=== PATIENT | female | born 2000 | race Caucasian/White ===

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

== ENCOUNTER 2019-01-24 08:36 | Emergency (ER) | payer MEDICAID ==
[2019-01-24 08:46] VITALS: BP 136/65
--- NOTE | 2019-01-24 09:30 | ER Document Report ---
HPI - HPI Time Seen by Provider: 01/24/19 09:13 Pain Level: 1 Context: Patient is a 18-year-old female who presents to the emergency department with a chief complaint of a rash. She noticed the rash yesterday morning. She denies any pruritus. Patient has a history of Lyme disease. The rash is mainly on her abdomen. It is a circular pattern, but no bull's-eye noted. Denies any past medical history. Patient does not take any medications. - CONSTITUTIONAL Constitutional: DENIES: Fever, Chills - EENT EENT: DENIES: Sore Throat, Ear Pain, Eye problems - NEURO Neurology: DENIES: Headache, Weakness, Vision blurred, Dizzinesss / Vertigo - CARDIOVASCULAR Cardiovascular: DENIES: Chest pain - RESPIRATORY Respiratory: DENIES: Trouble Breathing, Coughing - GASTROINTESTINAL Gastrointestinal: DENIES: Abdominal Pain, Black / Bloody Stools - URINARY Urinary: DENIES: Dysuria, Urgency, Frequency - REPRODUCTIVE Reproductive: DENIES: :, Postmenopausal, Abnormal bleeding / discharge - MUSCULOSKELETAL Musculoskeletal: DENIES: Extremity pain - DERM Skin Problems: Rash - Abdomen, multiple and circular Past Medical History - Social History Smoking Status: Never Smoker Chew tobacco use (# tins/day): No Drug Abuse: None Family History: Reviewed & Not Pertinent Patient has suicidal ideation: No Patient has homicidal ideation: No Renal/ Medical History: Denies: Hx Peritoneal Dialysis Skin Medical History: Reports Hx Cellulitis Psychiatric Medical History: Reports: Hx Depression - Immunizations Immunizations up to date: Yes Hx Diphtheria, Pertussis, Tetanus Vaccination: Yes Vertical Provider Document - CONSTITUTIONAL Notes: PHYSICAL EXAMINATION: GENERAL: Appears well, healthy, well-nourished, no acute distress. HEAD: Normocephalic, atraumatic. EYES: PERRL, conjunctiva normal, all extraocular movements intact, sclera nonicteric ENT: Moist mucous membranes. NECK: Supple, no noticeable swelling, redness, rash. Normal range of motion. LUNGS: Equal breath sounds bilaterally and clear to auscultation. No wheezes rales or rhonchi. CARDIOVASCULAR: S1-S2, regular rate, regular rhythm. Radial pulses 2+, normal. ABDOMEN: Normoactive bowel sounds. Soft, nontender, no guarding, no rebound tenderness, and no masses palpated. EXTREMITIES: Normal strength and range of motion, no pitting or edema. No cyanosis. NEUROLOGICAL: Moves all extremities upon command. Strength 5/5 in all extremities. PSYCH: Normal mood, normal affect. SKIN: Warm, dry. Normal skin turgor. Blanchable erythematous circular richardson on abdomen. - INFECTION CONTROL TRAVEL OUTSIDE OF THE [place] IN LAST 30 DAYS: No Course - Re-evaluation Re-evalutation: 01/24/19 09:57 Dr. Paula had evaluated the patient and at this time the patient does not have any life-threatening rash. Dr. Puala is recommending an antifungal cream to help with the rash she has on her abdomen. I have a very low suspicion for Lyme's disease, as there is no bullseye noted on her rash. Follow-up precautions were given. Verbal discharge instructions were given to the patient. They verbalized understanding. They are stable for discharge. - Vital Signs Vital signs: Temp Pulse Resp BP Pulse Ox 98.0 F 78 16 136/65 H 100 01/24/19 08:44 01/24/19 08:44 01/24/19 08:44 01/24/19 08:44 01/24/19 08:44 Discharge - Discharge Clinical Impression: Rash Condition: Stable Disposition: HOME, SELF-CARE Additional Instructions: You are seen today in the emergency department for a rash on your abdomen. At this time, your rash does not appear life-threatening. You are being prescribed antifungal cream. If the rash does not seem to go away, you can use the cream. Please follow-up with a primary care provider in regards to this visit. Prescriptions: Clotrimazole 1% Topical [Lotrimin 1% Topical Soln 10 ml] 1 applic TP BIDP PRN #10 ml PRN Reason:
--- NOTE | 2019-01-24 09:51 | ER Document Report ---
Doctor's Note Notes: 01/24/19 09:48 Patient seen in conjunction with nurse practitioner, please see her note correlate with mine. In short this is a 18-year-old female presents to the emergency department for evaluation of a rash. She noticed it yesterday on her abdomen and back. She states it started as circles. She states some of the cir cles are changing in shape. She has no itching, no burning, no pain. No fevers. No vomiting. She does have a history of Lyme disease. On exam, patient nontoxic in appearance. She has very faint, mildly erythematous ring- shaped lesions with central clearing. The lesions themselves are very thin. Not raised. Findings are very nonspecific. Will offer treatment for tinea, close follow up.
== END 2019-01-24 10:01 | disposition home or self-care (01) ==
LOC: ER 08:36
DX: R21 Rash and other nonspecific skin eruption (principal)
CPT/HCPCS: 99282

== ENCOUNTER 2019-02-03 19:01 | Emergency (ER) | payer MEDICAID ==
[2019-02-03 19:08] VITALS: BP 133/76
--- NOTE | 2019-02-03 19:23 | ER Document Report ---
HPI - HPI Pain Level: 2 Notes: Patient is a 18-year-old female no significant past medical history who presents complaining of continued rash that she was seen for a couple weeks ago. Patient states that she has not had any significant changes overall and the antifungal cream does not seem to be doing anything for her. She does not have any associated pain. Patient states that on occasion she will feel little pruritic. No recent illness. She is able to eat and drink without difficulty. She is urinating normally and having normal bowel movements. No new exposure to chemicals, detergents, soaps, foods. No known insect or tick bite. Denies any headache, fever, URI, sore throat, chest pain, palpitations, syncope, cough, shortness of breath, wheeze, dyspnea, abdominal pain, nausea/vomiting/diarrhea, urinary retention, dysuria, hematuria, numbness/tingling, muscle paralysis/weak ness. - ROS Systems Reviewed and Negative: Yes All other systems reviewed and negative - REPRODUCTIVE Reproductive: DENIES: : Past Medical History - Social History Smoking Status: Unknown if Ever Smoked Family History: Reviewed & Not Pertinent Renal/ Medical History: Denies: Hx Peritoneal Dialysis Skin Medical History: Reports Hx Cellulitis Psychiatric Medical History: Reports: Hx Depression - Immunizations Immunizations up to date: Yes Hx Diphtheria, Pertussis, Tetanus Vaccination: Yes Vertical Provider Document - CONSTITUTIONAL Agree With Documented VS: Yes Notes: PHYSICAL EXAMINATION: GENERAL: Well-appearing, well-nourished and in no acute distress. HEAD: Atraumatic, normocephalic. EYES: Pupils equal round and reactive to light, extraocular movements intact, sclera anicteric, conjunctiva are normal. ENT: Nares patent and without discharge. oropharynx clear without exudates. No tonsilar hypertrophy or erythema. Moist mucous membranes. NECK: Normal range of motion, supple without lymphadenopathy LUNGS: Breath sounds clear to auscultation bilaterally and equal. No wheezes rales or rhonchi. HEART: Regular rate and rhythm without murmurs, rubs, gallops. ABDOMEN: Soft, nontender, nondistended abdomen. No guarding, no rebound. No masses appreciated. Normal bowel sounds present. No CVA tenderness bilaterally. Musculoskeletal: FROM to passive/active. Strength 5+/5. Extremities: No cyanosis, clubbing, or edema b/l. Peripheral pulses 2+. Capillary refill less than 3 seconds. NEUROLOGICAL: Cranial nerves grossly intact. Normal speech, normal gait. Normal sensory, motor exams PSYCH: Normal mood, normal affect. SKIN: there is a very faint thin erythemic ring with central clearing. No erythema migrans. No deep areas of erythema, tenderness, fluctuance, induration, purulence. There are multiple lesions of varying sizes generalized. The rash is not noticeable unless you are up close to the skin itself. - INFECTION CONTROL TRAVEL OUTSIDE OF THE [place] IN LAST 30 DAYS: No Course - Re-evaluation Re-evalutation: 02/03/19 19:26 Patient is an afebrile, well-hydrated, 18-year-old female who presents with nonspecific skin rash. Vitals are acceptable without significant tachycardia, tachypnea, or hypoxia. PE is otherwise unremarkable. Patient is nontoxic- appearing and is tolerating p.o. without difficulty. Low suspicion for any necrotizing fasciitis, SJS, SSS, drug reaction, sepsis, meningitis, syphilis, Lyme disease, [place] spotted fever, or other systemic emergent condition at this time. Patient aware that condition can change from initial presentation and she needs to monitor symptoms closely and seek medical attention with any acute changes. Recheck with your PCM in 3-5 days. Schedule consult with dermatology. Return to the ED with any other worsening/concerning symptoms as reviewed. Patient is in agreement. - Vital Signs Vital signs: Temp Pulse Resp BP Pulse Ox 97.6 F 83 20 133/76 H 96 02/03/19 19:07 02/03/19 19:07 02/03/19 19:07 02/03/19 19:07 02/03/19 19:07 Discharge - Discharge Clinical Impression: Rash and nonspecific skin eruption Condition: Stable Disposition: HOME, SELF-CARE Additional Instructions: Keep the skin clean Wash with soap and water Tylenol/ibuprofen if needed Take medication as directed Monitor for any worsening symptoms Recheck with your PCM in 3-5 days Schedule appointment dermatology for further evaluation and management Return to the ED with any worsening symptoms and/or development of fever, headache, chest pain, palpitations, syncope, shortness of breath, trouble breathing, abdominal pain, n/v/d, abscess, purulent discharge, red streaks, worsening swelling, or other worsening symptoms that are concerning to you. Forms: Elevated Blood Pressure Referrals: DANIELA MATHUR MD [NO LOCAL MD] - Follow up in 3-5 days
== END 2019-02-03 19:43 | disposition home or self-care (01) ==
LOC: ER 19:01
DX: R21 Rash and other nonspecific skin eruption (principal)

== ENCOUNTER 2019-03-31 18:50 | Emergency (ER) | payer MEDICAID ==
[2019-03-31] MEDS ORDERED: ONDANSETRON 4 MG TAB.RAPDIS PO ONE (19:34)
--- NOTE | 2019-03-31 19:36 | ER Document Report ---
ED Medical Screen (RME) - General Chief Complaint: Abdominal Pain Stated Complaint: FEVER Time Seen by Provider: 03/31/19 19:31 Mode of Arrival: Ambulatory Information source: Patient Notes: 18-year-old female presented to ED for complaint of abdominal pain periumbilical since last night. She is also had nausea and vomiting with vomiting x2. Her last menstrual period was 828 and she did take Plan B on March 01 and had a few days of light bleeding there was not a normal cycle. She states she does not smoke drink or do any drugs. She does have a history of anxiety depression and lives disease. TRAVEL OUTSIDE OF THE [place] IN LAST 30 DAYS: No - Related Data Allergies/Adverse Reactions: fluoxetine [From Prozac] Allergy (Verified 01/24/19 08:37) shellfish derived Allergy (Verified 01/24/19 08:37) Past Medical History Renal/ Medical History: Denies: Hx Peritoneal Dialysis Skin Medical History: Reports Hx Cellulitis Psychiatric Medical History: Reports: Hx Depression Past Surgical History: Reports: Hx Orthopedic Surgery - R leg - Immunizations Immunizations up to date: Yes Hx Diphtheria, Pertussis, Tetanus Vaccination: Yes Physical Exam - Vital signs Vitals: Temp Pulse Resp BP Pulse Ox 98.1 F 100 H 16 118/95 H 98 03/31/19 18:56 03/31/19 18:56 03/31/19 18:56 03/31/19 18:56 03/31/19 18:56 Course - Vital Signs Vital signs: Temp Pulse Resp BP Pulse Ox 98.1 F 100 H 16 118/95 H 98 03/31/19 18:56 03/31/19 18:56 03/31/19 18:56 03/31/19 18:56 03/31/19 18:56
[2019-03-31 20:49] LABS: ABSOLUTE LYMPHOCYTES (AUTO) 1.4 10^3/uL (0.5-4.7); ABSOLUTE MONOCYTES (AUTO) 0.4 10^3/uL (0.1-1.4); ABSOLUTE NEUT (AUTO) 8.7 10^3/uL (1.7-8.2); BASOPHILS % (AUTO) 0.3 % (0-2); EOSINOPHILS % (AUTO) 0.2 % (0-6); HEMATOCRIT 39.2 % (36.0-47.0); HEMOGLOBIN 13.2 g/dL (12.0-15.5); LYMPHOCYTES % (AUTO) 13.7 % (13-45); MEAN CORPUSCULAR HEMOGLOBIN 30.8 pg (27.0-33.4); MEAN CORPUSCULAR HGB CONC 33.6 g/dL (32.0-36.0); MEAN CORPUSCULAR VOLUME 92 fl (80-97); PLATELET COUNT 167 10^3/uL (150-450); RED BLOOD COUNT 4.28 10^6/uL (3.72-5.28); RED CELL DISTRIBUTION WIDTH 12.6 % (11.5-14.0); SEGMENTED NEUTROPHILS % (AUTO) 81.8 % (42-78); TOTAL CELLS COUNTED % (AUTO) 100 %; WHITE BLOOD COUNT 10.6 10^3/uL (4.0-10.5)
[2019-03-31 21:00] LABS: APPEARANCE,URINE SLIGHTLY-CLOUDY; BILIRUBIN,URINE NEGATIVE (NEGATIVE); CALCIUM OXALATE CRYSTALS,URINE FEW /HPF; COLOR,URINE YELLOW; GLUCOSE, URINE NEGATIVE (NEGATIVE); KETONES,URINE NEGATIVE (NEGATIVE); LEUKOCYTE ESTERASE,URINE TRACE (NEGATIVE); NITRITE,URINE NEGATIVE (NEGATIVE); PROTEIN,URINE NEGATIVE (NEGATIVE); URINE SPECIFIC GRAVITY 1.025; UROBILINOGEN,URINE NEGATIVE mg/dL (<2.0)
[2019-03-31 21:07] LABS: ALBUMIN 4.8 g/dL (3.7-5.6); ALKALINE PHOSPHATASE 98 U/L (50-135); ANION GAP 13 (5-19); ASPARTATE AMINO TRANSFERASE 23 U/L (5-30); BILIRUBIN,DIRECT 0.1 mg/dL (0.0-0.4); BILIRUBIN,TOTAL 0.3 mg/dL (0.2-1.3); BLOOD UREA NITROGEN 15 mg/dL (7-20); CALCIUM 10.1 mg/dL (8.4-10.2); CARBON DIOXIDE 25 mmol/L (22-30); CHLORIDE 102 mmol/L (98-107); GLUCOSE 94 mg/dL (75-110); POTASSIUM 4.2 mmol/L (3.6-5.0); TOTAL PROTEIN 7.8 g/dL (6.3-8.2)
--- NOTE | 2019-03-31 22:52 | ER Document Report ---
ED GI/ - General Chief Complaint: Abdominal Pain Stated Complaint: FEVER Time Seen by Provider: 03/31/19 22:52 Primary Care Provider: BOYD MONTEZ MD [ACTIVE STAFF] - Follow up as needed Mode of Arrival: Ambulatory Information source: Patient Notes: HISTORY OF PRESENT ILLNESS: Patient is a 18-year-old female with no significant past medical history who presents with abdominal pain and nausea after eating a chicken sandwich. Patient states that after eating the sandwich, approximately 30 minutes later she began having slight abdominal pain, soon after this she began having nausea and had multiple episodes of nonbloody and nonbilious emesis. She denies known sick contacts. Location: Abdomen Onset: Prior to arrival Alleviation: None Provocation: Possibly eating bad food Quality: Nausea, aching Radiation: None Severity: Mild to moderate Timing: Constant History of abdominal surgery: None Associated symptoms: Denies fevers or chills, no constipation or diarrhea, no vaginal bleeding or discharge Last bowel movement: Today and normal Last menstrual period: Last month REVIEW OF SYSTEMS: CONSTITUTIONAL : Denies fever or chills, no sweats. Denies recent illness. EENT: Denies eye, ear, throat, or mouth pain or symptoms. Denies nasal or sinus congestion. CARDIOVASCULAR: Denies chest pain. Denies swelling of the legs. RESPIRATORY: Denies cough, cold, or chest congestion. Denies shortness of breath or difficulty breathing. Denies wheezing. GASTROINTESTINAL: Positive for abdominal pain. Positive for nausea and vomiting. Denies constipation. GENITOURINARY: Denies difficulty urinating, painful urination, burning, frequency, or blood in urine. FEMALE GENITOURINARY: Denies vaginal bleeding, abnormal or irregular periods. MUSCULOSKELETAL: Denies neck or back pain or joint pain or swelling. SKIN: Denies rash or skin lesions. HEMATOLOGIC : Denies easy bruising or bleeding. LYMPHATIC: Denies swollen, enlarged glands. NEUROLOGICAL: Denies altered mental status or loss of consciousness. Denies headache. Denies weakness or paralysis or loss of use of either side. Denies problems with gait or speech. Denies sensory or motor loss. PSYCHIATRIC: Denies anxiety or stress or depression. All other systems reviewed and negative. PHYSICAL EXAMINATION: GENERAL: Well-appearing, well-nourished and in no acute distress. HEAD: Atraumatic, normocephalic. No scalp deformity, depression, or crepitance. EYES: Pupils are 3 mm and equal/round/reactive to light, extraocular movements intact, sclera anicteric, conjunctiva are normal. ENT: Nares patent bilaterally, oropharynx. Moist mucous membranes. No tonsil hypertrophy. NECK: Normal range of motion, supple without lymphadenopathy. LUNGS: Breath sounds present, equal, and clear to auscultation bilaterally. No wheezes, rales, or rhonchi. HEART: Regular rate and rhythm without murmurs, rubs, or gallops. 2+ peripheral pulses. Normal capillary refill. ABDOMEN: Soft, nontender, nondistended. Normoactive bowel sounds. No guarding, no rebound. No masses appreciated. BACK: Normal contour, no midline tenderness. Rectal exam deferred. GENITAL/PELVIC: Deferred. EXTREMITIES: Normal range of motion, no pitting or edema. No cyanosis. NEUROLOGICAL: No focal neurological deficits. Moves all extremities spontaneously and on command. PSYCH: Normal mood, normal affect. No suicidal thoughts/ideations. No homicidal thoughts/ideations. No hallucinations. SKIN: Warm, dry, normal turgor, no rashes or lesions noted. ASSESSMENT AND PLAN: This patient is a 18-year-old female who presents with nausea and vomiting likely secondary to gastroenteritis versus foodborne illness versus gastritis. 1. Will obtain labs, give IV fluids, and reassess. 2. Will perform oral challenge after work-up is complete and patient has improved. TRAVEL OUTSIDE OF THE [place] IN LAST 30 DAYS: No - HPI Patient complains to provider of: Abdominal pain, Vomiting Onset: This evening Timing/Duration: Sudden Quality of pain: Achy, Cramping Severity at maximum: Moderate Severity in ED: Mild Pain Level: 1 Context: Bad food Location: Suprapubic, Other - Lower abdomen Vaginal bleeding (Compared to normal period): None Menstrual period history: Abnormal, Missed Sexual history: Active Associated symptoms: Nausea, Vomiting Exacerbated by: Denies Relieved by: Denies Similar symptoms previously: No Recently seen / treated by doctor: No - Related Data Allergies/Adverse Reactions: fluoxetine [From Prozac] Allergy (Verified 01/24/19 08:37) shellfish derived Allergy (Verified 01/24/19 08:37) Past Medical History - General Information source: Patient - Social History Smoking Status: Never Smoker Chew tobacco use (# tins/day): No Frequency of alcohol use: None Drug Abuse: None Lives with: Friend Family History: Reviewed & Not Pertinent Patient has suicidal ideation: No Patient has homicidal ideation: No - Past Medical History Cardiac Medical History: Reports: None Pulmonary Medical History: Reports: None EENT Medical History: Reports: None Neurological Medical History: Reports: None Endocrine Medical History: Reports: None Renal/ Medical History: Reports: None. Denies: Hx Peritoneal Dialysis Malignancy Medical History: Reports: None GI Medical History: Reports: None Musculoskeletal Medical History: Reports None Skin Medical History: Reports Hx Cellulitis Psychiatric Medical History: Reports: Hx Depression Traumatic Medical History: Reports: None Infectious Medical History: Reports: None Past Surgical History: Reports: Hx Orthopedic Surgery - R leg - Immunizations Immunizations up to date: Yes Hx Diphtheria, Pertussis, Tetanus Vaccination: Yes Review of Systems - Review of Systems Constitutional: No symptoms reported EENT: No symptoms reported Cardiovascular: No symptoms reported Respiratory: No symptoms reported Gastrointestinal: See HPI, Abdominal pain, Nausea, Vomiting Genitourinary: No symptoms reported Female Genitourinary: No symptoms reported Musculoskeletal: No symptoms reported Skin: No symptoms reported Hematologic/Lymphatic: No symptoms reported Neurological/Psychological: No symptoms reported -: Yes All other systems reviewed and negative Physical Exam - Vital signs Vitals: Temp Pulse Resp BP Pulse Ox 98.1 F 100 H 16 118/95 H 98 03/31/19 18:56 03/31/19 18:56 03/31/19 18:56 03/31/19 18:56 03/31/19 18:56 Interpretation: Normal Course - Re-evaluation Re-evalutation: 04/01/19 00:36 Will discharge the patient home with strict return precautions and follow-up with [employer]. All results were explained to and discussed with the patient, and all questions addressed and answered. The patient voices both understanding and agreeing with the plan. - Vital Signs Vital signs: Temp Pulse Resp BP Pulse Ox 98.4 F 83 13 106/55 L 98 04/01/19 00:55 04/01/19 00:55 04/01/19 00:55 04/01/19 00:55 04/01/19 00:55 - Laboratory Result Diagrams: 03/31/19 20:16 03/31/19 20:16 Laboratory results interpreted by me: 03/31/19 03/31/19 20:16 20:16 WBC 10.6 H Absolute Neuts (auto) 8.7 H Seg Neutrophils % 81.8 H Ur Leukocyte Esterase TRACE H Discharge - Discharge Clinical Impression: Enteritis Condition: Good Disposition: HOME, SELF-CARE Instructions: Abdominal Pain ([facility]) Additional Instructions: You have been evaluated in the Emergency Department for abdominal pain and vomiting. While here, you had blood work that was normal and it is now safe to be discharged home. Please follow-up with your/[employer] WORKER as instructed in one week to be rechecked. Return to the Emergency Department if you experience worsening pain, irregular vaginal bleeding, weakness, or any other concerning symptoms. Prescriptions: Ondansetron [Zofran Odt 4 mg Tablet] 1 tab PO Q8HP PRN #30 tab.rapdis PRN Reason: For Nausea/Vomiting Forms: Return to Work Referrals: BOYD MONTEZ MD [ACTIVE STAFF] - Follow up as needed Print Language: [place] Leonean
[2019-04-01 00:59] VITALS: BP 106/55
== END 2019-04-01 01:01 | disposition home or self-care (01) ==
LOC: ER 18:50
DX: K52.9 Noninfective gastroenteritis and colitis, unspecified (principal); R10.30 Lower abdominal pain, unspecified; R11.2 Nausea with vomiting, unspecified; Z88.8 Allergy status to other drugs, medicaments and biological substances; Z91.013 Allergy to seafood
CPT/HCPCS: 36415; 84702; 85025; 80053; 81001; S0119

== ENCOUNTER 2019-05-31 05:43 | Emergency (ER) | payer MEDICAID ==
[2019-05-31] MEDS ORDERED: CLINDAMYCIN PHOSPHATE INJ 300 MG/2 ML SDV IM ONE (06:51)
[2019-05-31] MEDS ORDERED: CEFTRIAXONE INJ 1000 MG VIAL IM ONE (06:58)
[2019-05-31] MEDS ORDERED: LIDOCAINE 1% INJ (10 MG/ML) 10 ML MDV INJ ONE (06:58)
--- NOTE | 2019-05-31 07:04 | ER Document Report ---
HPI - HPI Time Seen by Provider: 05/31/19 06:39 Pain Level: 2 Context: 18-year-old healthy female presents to the emergency department with an abscess on her left zygomatic process. Patient states that it started as a pimple she attempted to pop it and it grew overnight. Patient denies any eye entrapment, denies any spreading redness, denies any fevers, denies any purulent drainage. Patient has tried warm compresses. - CONSTITUTIONAL Constitutional: DENIES: Fever, Chills - REPRODUCTIVE Reproductive: DENIES: : Past Medical History - Social History Smoking Status: Never Smoker Family History: Reviewed & Not Pertinent Patient has suicidal ideation: No Patient has homicidal ideation: No Renal/ Medical History: Denies: Hx Peritoneal Dialysis Skin Medical History: Reports Hx Cellulitis Psychiatric Medical History: Reports: Hx Depression Past Surgical History: Reports: Hx Orthopedic Surgery - R leg - Immunizations Immunizations up to date: Yes Hx Diphtheria, Pertussis, Tetanus Vaccination: Yes Vertical Provider Document - CONSTITUTIONAL Notes: PHYSICAL EXAMINATION: Reviewed vital signs and charting by RN GENERAL: Alert, interacts well. No acute distress. HEAD: Normocephalic, atraumatic. EYES: Pupils equal and round. Extraocular movements intact. ENT: Oral mucosa moist, tongue midline. NECK: Full range of motion. Trachea midline. EXTREMITIES: Moves all 4 extremities spontaneously. No edema, No cyanosis. PSYCH: Normal affect, normal mood. SKIN: Warm, dry, normal turgor. Small abscess over the left zygomatic arch with approximately 1.5 cm of induration, no discharge. - INFECTION CONTROL TRAVEL OUTSIDE OF THE [place] IN LAST 30 DAYS: No Course - Re-evaluation Re-evalutation: 05/31/19 07:13 Patient with a small abscess of left zygomatic arch, I am very uncomfortable performing an incision and drainage on this. It is small enough that I feel we can give her Rocephin 1 g IM and treat her with Keflex. I told her to use hot compresses, prescribe her Bactroban, and gave her a prescription for Keflex. Very low threshold for her to return to the emergency department if it rapidly expands. Extraocular movements are intact and there is no ocular involvement at this time. Patient understands plan clearly, was given strict return precautions, and is stable for discharge. - Vital Signs Vital signs: Temp Pulse Resp BP Pulse Ox 98.2 F 89 16 121/67 100 05/31/19 05:48 05/31/19 05:48 05/31/19 05:48 05/31/19 05:48 05/31/19 05:48 Discharge - Discharge Clinical Impression: Abscess Condition: Good Disposition: HOME, SELF-CARE Additional Instructions: You were seen for an abscess that we did not drain today. Like we talked about, it is critically important that you keep an eye on it so it does not rapidly expand. Please clean this area with soap and water twice daily and apply the topical antibiotic Bactroban that was prescribed to you. Also, please take the Keflex 4 times a day for the next 5 days. You did receive 1 dose of antibiotics here intramuscularly. Please return if you develop fever, vomiting, the pain at the site worsens, you notice spreading redness from the area, or you have any other symptoms that are concerning to you. Prescriptions: Cephalexin Monohydrate [Keflex 500 mg Capsule] 500 mg PO Q6H 5 Days capsule Referrals: DRE ROBLERO MD [Primary Care Provider] - Follow up as needed
[2019-05-31 07:06] VITALS: BP 117/67
== END 2019-05-31 07:20 | disposition home or self-care (01) ==
LOC: ER 05:43
DX: L02.01 Cutaneous abscess of face (principal)
CPT/HCPCS: 99282; 96372; J3490 ×2; J0696

== ENCOUNTER 2019-06-01 08:19 | Emergency (ER) | payer MEDICAID ==
[2019-06-01] MEDS ORDERED: DIPHENHYDRAMINE HCL 50 MG/ML VIAL IV ONE (11:09)
--- NOTE | 2019-06-01 11:11 | ER Document Report ---
ED Medical Screen (RME) - General Chief Complaint: Abscess Stated Complaint: ABSCESS Time Seen by Provider: 06/01/19 10:39 Primary Care Provider: DRE ROBLERO MD [Primary Care Provider] - Follow up as needed Mode of Arrival: Ambulatory Information source: Patient TRAVEL OUTSIDE OF THE [place] IN LAST 30 DAYS: No - HPI Notes: 06/01/19 11:08 18-year-old female presents to the ED for reevaluation of a left facial cellulitis, patient was seen in the emergency room, given a gram of Rocephin and started on oral Keflex. Patient states that her pain has become progressively worse, swelling has become worse and she now has bruising around her left orbital area. Pain is a 5 out of 10, throbbing sharp and achy. Denies any blurred vision double vision or loss. Eating and drinking without issues. PHYSICAL EXAMINATION: reviewed vital signs by RN GENERAL: Well-appearing, well-nourished and in no acute distress. HEAD: Atraumatic, normocephalic. EYES: Pupils equal round and reactive to light, extraocular movements intact, conjunctiva are normal. Noted erythema with induration to left orbital area with upper eyelid with scant ecchymosis. ENT: Nares patent, oropharynx clear without exudates. Moist mucous membranes. NECK: Normal range of motion, supple without lymphadenopathy LUNGS: Breath sounds clear to auscultation bilaterally and equal. No wheezes rales or rhonchi. HEART: Regular rate and rhythm without murmurs I have greeted and performed a rapid initial assessment of this patient. A comprehensive ED assessment and evaluation of the patient, analysis of test results and completion of medical decision making process will be conducted by an additional ED providers. - Related Data Allergies/Adverse Reactions: fluoxetine [From Prozac] Allergy (Verified 01/24/19 08:37) shellfish derived Allergy (Verified 01/24/19 08:37) Past Medical History - Social History Chew tobacco use (# tins/day): No Frequency of alcohol use: None Drug Abuse: None Renal/ Medical History: Denies: Hx Peritoneal Dialysis Skin Medical History: Reports Hx Cellulitis Psychiatric Medical History: Reports: Hx Depression Past Surgical History: Reports: Hx Orthopedic Surgery - R leg - Immunizations Immunizations up to date: Yes Hx Diphtheria, Pertussis, Tetanus Vaccination: Yes Physical Exam - Vital signs Vitals: Temp Pulse Resp BP Pulse Ox 98.2 F 84 16 119/67 100 06/01/19 08:22 06/01/19 08:22 06/01/19 08:22 06/01/19 08:22 06/01/19 08:22 Course - Vital Signs Vital signs: Temp Pulse Resp BP Pulse Ox 98.2 F 84 16 119/67 100 06/01/19 08:22 06/01/19 08:22 06/01/19 08:22 06/01/19 08:22 06/01/19 08:22 Doctor's Discharge - Discharge Referrals: DRE ROBLERO MD [Primary Care Provider] - Follow up as needed
[2019-06-01 11:41] LABS: ABSOLUTE EOSINOPHILS # (AUTO) 0.1 10^3/uL (0.0-0.6); ABSOLUTE LYMPHOCYTES (AUTO) 1.7 10^3/uL (0.5-4.7); ABSOLUTE MONOCYTES (AUTO) 0.2 10^3/uL (0.1-1.4); ABSOLUTE NEUT (AUTO) 2.5 10^3/uL (1.7-8.2); BASOPHILS % (AUTO) 0.6 % (0-2); EOSINOPHILS % (AUTO) 1.3 % (0-6); HEMATOCRIT 38.1 % (36.0-47.0); HEMOGLOBIN 13.1 g/dL (12.0-15.5); LYMPHOCYTES % (AUTO) 36.7 % (13-45); MEAN CORPUSCULAR HEMOGLOBIN 31.9 pg (27.0-33.4); MEAN CORPUSCULAR HGB CONC 34.5 g/dL (32.0-36.0); MEAN CORPUSCULAR VOLUME 92 fl (80-97); MONOCYTES % (AUTO) 5.5 % (3-13); PLATELET COUNT 172 10^3/uL (150-450); RED BLOOD COUNT 4.12 10^6/uL (3.72-5.28); RED CELL DISTRIBUTION WIDTH 12.5 % (11.5-14.0); SEGMENTED NEUTROPHILS % (AUTO) 55.9 % (42-78); TOTAL CELLS COUNTED % (AUTO) 100 %; WHITE BLOOD COUNT 4.5 10^3/uL (4.0-10.5)
[2019-06-01 11:51] LABS: ALBUMIN 4.5 g/dL (3.7-5.6); ALKALINE PHOSPHATASE 92 U/L (50-135); ANION GAP 11 (5-19); ASPARTATE AMINO TRANSFERASE 23 U/L (5-30); BILIRUBIN,DIRECT 0.1 mg/dL (0.0-0.4); BILIRUBIN,TOTAL 0.5 mg/dL (0.2-1.3); BLOOD UREA NITROGEN 12 mg/dL (7-20); CALCIUM 9.8 mg/dL (8.4-10.2); CARBON DIOXIDE 25 mmol/L (22-30); CHLORIDE 108 mmol/L (98-107); GLUCOSE 85 mg/dL (75-110); POTASSIUM 4.2 mmol/L (3.6-5.0); TOTAL PROTEIN 7.5 g/dL (6.3-8.2)
--- NOTE | 2019-06-01 12:26 | RADIOLOGY REPORT (SQ) ---
EXAM DESCRIPTION: CT FACIAL AREA WITH COMPLETED DATE/TIME: 06/01/2019 12:02 pm REASON FOR STUDY: left orbital cellulitis, on oral abx, facial swell COMPARISON: None. TECHNIQUE: Post contrast images through the facial bones and orbits windowed for bone and soft tissu e. Additional coronal and sagittal reconstructed images reviewed. All images stored on PACS. All CT scanners at this facility use dose modulation, iterative reconstruction, and/or weight based d osing when appropriate to reduce radiation dose to as low as reasonably achievable (ALARA). [facility]: Dose Right [facility]: CareDose [facility]: Dose Right [facility]: Teradose 4D [facility]: [employer] CONTRAST TYPE AND DOSE: contrast/concentration: Isovue 350.00 mg/ml; Total Contrast Delivered: 75.0 ml; Total Saline Delivered: 50.0 ml RENAL FUNCTION: None required. The patient is less than 50 years old. RADIATION DOSE: CT Rad equipment meets quality standard of care and radiation dose reduction techniq ues were employed. CTDIvol: 6.4 mGy. DLP: 129 mGy-cm. . LIMITATIONS: None. FINDINGS: FACIAL BONES: No fracture or bone lesion. ORBITS: Intact. No fracture. Symmetric intact globes and retroorbital soft tissues. Minimal left p eriorbital soft tissue stranding. No focal abscess. No retro bulb are abnormalities. PARANASAL SINUSES: Clear. No significant mucosal thickening, mass or fluid. No nasal polyps. Maxilla ry sinus outlets are patent. SOFT TISSUES: No mass or edema. No abnormal enhancement. INFERIOR BRAIN: Limited view. No acute findings. OTHER: Occasional small cervical lymph node most likely reactive. Prominent submental nodes as well. IMPRESSION: Minimal left periorbital soft tissue edema. No focal abscess or fluid collection. TECHNICAL DOCUMENTATION: JOB ID: [id number] Quality ID # [id number]: Final reports with documentation of one or more dose reduction techniques (e.g., Au tomated exposure control, adjustment of the mA and/or kV according to patient size, use of iterative reconstruction technique) 2010 [employer]- All Rights Reserved Reading location - IP/workstation name: [email or web address]
--- NOTE | 2019-06-01 12:36 | ER Document Report ---
ED Skin Rash/Insect Bite/Abscs - General Chief Complaint: Abscess Stated Complaint: ABSCESS Time Seen by Provider: 06/01/19 10:39 Primary Care Provider: DRE ROBLERO MD [Primary Care Provider] - Follow up as needed Mode of Arrival: Ambulatory Notes: Patient is a 18-year-old female who presents emergency department with a chief complaint of erythema and a pustule to the left side of her face. She was seen here in the emergency department a day and a half ago and was sent home with Keflex for cellulitis. Patient states that it is getting worse. She ended up having some purulent drainage drained from the area. Denies any fevers, body aches, chills, or any other symptoms at this time. Denies any past medical history. Denies any other medication use. Patient denies any vision changes. TRAVEL OUTSIDE OF THE [place] IN LAST 30 DAYS: No - Related Data Allergies/Adverse Reactions: fluoxetine [From Prozac] Allergy (Verified 01/24/19 08:37) shellfish derived Allergy (Verified 01/24/19 08:37) Past Medical History - General Information source: Patient - Social History Smoking Status: Never Smoker Chew tobacco use (# tins/day): No Frequency of alcohol use: None Drug Abuse: None Family History: Reviewed & Not Pertinent Patient has suicidal ideation: No Patient has homicidal ideation: No Renal/ Medical History: Denies: Hx Peritoneal Dialysis Skin Medical History: Reports Hx Cellulitis Psychiatric Medical History: Reports: Hx Depression Past Surgical History: Reports: Hx Orthopedic Surgery - R leg - Immunizations Immunizations up to date: Yes Hx Diphtheria, Pertussis, Tetanus Vaccination: Yes Review of Systems - Review of Systems Notes: REVIEW OF SYSTEMS: CONSTITUTIONAL : Denies recent illness. Denies recent unintentional weight loss. Denies fever, chills, or sweats. EENT: Denies eye, ear, throat, or mouth pain, discharge, or symptoms. Denies nasal or sinus congestion. CARDIOVASCULAR: Denies chest pain. RESPIRATORY: Denies shortness of breath, cough, congestion, difficulty breathing, or wheezing. GASTROINTESTINAL: Denies nausea, vomiting, and diarrhea. Denies abdominal pain. Denies constipation. GENITOURINARY: Denies difficulty urinating, burning, blood in urine, urgency or frequency. MUSCULOSKELETAL: Denies neck and back pain. Denies joint pain or swelling. SKIN: See HPI. HEMATOLOGIC : Denies easy bruising or bleeding. LYMPHATIC: Denies swollen, painful, enlarged glands. NEUROLOGICAL: Denies no numbness or tingling denies weakness. Denies headache. Denies altered mental status. Denies alteration in speech. PSYCHIATRIC: Denies stress, anxiety, alteration in sleep patterns, or depression. All other systems reviewed and negative. Physical Exam - Vital signs Vitals: Temp Pulse Resp BP Pulse Ox 98.2 F 84 16 119/67 100 06/01/19 08:22 06/01/19 08:22 06/01/19 08:22 06/01/19 08:22 06/01/19 08:22 - Notes Notes: PHYSICAL EXAMINATION: GENERAL: Appears well, healthy, well-nourished, no acute distress. HEAD: Normocephalic, atraumatic. EYES: PERRL, conjunctiva normal, all extraocular movements intact, sclera nonicteric ENT: Moist mucous membranes. NECK: Supple, no noticeable swelling, redness, rash. Normal range of motion. LUNGS: Equal breath sounds bilaterally and clear to auscultation. No wheezes rales or rhonchi. CARDIOVASCULAR: S1-S2, regular rate, regular rhythm. Radial pulses 2+, normal. ABDOMEN: Normoactive bowel sounds. Soft, nontender, no guarding, no rebound tenderness, and no masses palpated. EXTREMITIES: Normal strength and range of motion, no pitting or edema. No cyanosis. NEUROLOGICAL: Moves all extremities upon command. Strength 5/5 in all extremities. PSYCH: Normal mood, normal affect. SKIN: Warm, dry. Mild edema and erythema noted to left lateral cheek area. Appears to have a ruptured abscess. Course - Re-evaluation Re-evalutation: 06/01/19 12:37 Patient presents with symptoms most consistent with an acute cellulitis with an abscess that has ruptured. CT does not show an abscess at this time. Vitals within normal limits. Patient does not meet sepsis criteria is overall very well in appearance. Patient will be started on Bactrim along with her Keflex. I have a very low suspicion for necrotizing fasciitis. No postorbital cellulitis noted. At this time will discharge with return precautions and fol low-up recommendations. Verbal discharge instructions given a the bedside and opportunity for questions given. Medication warnings reviewed. Patient is in agreement with this plan and has verbalized understanding of return precautions and the need for primary care follow-up in the next 24-72 hours. - Vital Signs Vital signs: Temp Pulse Resp BP Pulse Ox 98.2 F 84 16 119/67 100 06/01/19 08:22 06/01/19 08:22 06/01/19 08:22 06/01/19 08:22 06/01/19 08:22 - Laboratory Result Diagrams: 06/01/19 11:22 06/01/19 11:22 Laboratory results interpreted by me: 06/01/19 11:22 Chloride 108 H Discharge - Discharge Clinical Impression: Abscess Condition: Stable Disposition: HOME, SELF-CARE Instructions: Trimethoprim-Sulfa ([facility]) Additional Instructions: You were seen today in the emergency department for worsening of your abscess. Your CT scan does not show an abscess. The abscess most likely ruptured when pus drained from it. You are being started on Bactrim, another medication. Please continue your Keflex. Follow-up with your primary care provider regards to this visit. If you develop a fever, have worsening symptoms, or have any symptoms that are worrisome to you, please return to the emergency department. Prescriptions: Sulfamethoxazole/Trimethoprim [Bactrim Ds Tablet] 1 each PO BID 7 Days #14 tablet Forms: Return to Work Referrals: DRE ROBLERO MD [Primary Care Provider] - Follow up as needed
[2019-06-01] MEDS ORDERED: SULFAMETHOXAZOLE/TRIMETHOPRIM 800-160 MG TABLET PO ONE (12:41)
[2019-06-01 12:57] VITALS: BP 107/54
== END 2019-06-01 12:58 | disposition home or self-care (01) ==
LOC: ER 08:19
DX: L53.9 Erythematous condition, unspecified (principal); L02.01 Cutaneous abscess of face; Z91.013 Allergy to seafood
CPT/HCPCS: 99283; 96374; 36415; 85025; 80053; 70487; J1200; J3490

== ENCOUNTER 2019-08-01 11:06 | Emergency (ER) | payer MEDICAID ==
[2019-08-01 11:20] VITALS: BP 115/71
--- NOTE | 2019-08-01 12:08 | ER Document Report ---
HPI - HPI Patient complains to provider of: cough, skin hurts headache lightheaded Time Seen by Provider: 08/01/19 12:00 Onset: Other - 07/28/19 Pain Level: Denies Context: 18-year-old female with history of depression anxiety presents emergency department with reporting her skin hurts cough headache and lightheadedness. Reports she is eating drinking as normal. Denies pain with void. Denies back pain. Did not receive flu vaccine. Has not had any recent trips. Associated Symptoms: Body/muscle aches, Headache Exacerbated by: Denies Relieved by: Denies Similar symptoms previously: No Recently seen / treated by doctor: No - CONSTITUTIONAL Constitutional: DENIES: Fever, Chills - RESPIRATORY Respiratory: REPORTS: Coughing - REPRODUCTIVE LMP: 07/21/19 Reproductive: DENIES: : Past Medical History - General Information source: Patient Last Menstrual Period: June - Social History Smoking Status: Former Smoker Chew tobacco use (# tins/day): No Frequency of alcohol use: None Drug Abuse: None Occupation: [employer] Family History: Reviewed & Not Pertinent Patient has suicidal ideation: No Patient has homicidal ideation: No Renal/ Medical History: Denies: Hx Peritoneal Dialysis Skin Medical History: Reports Hx Cellulitis Psychiatric Medical History: Reports: Hx Anxiety, Hx Depression Past Surgical History: Reports: Hx Orthopedic Surgery - R leg - Immunizations Immunizations up to date: Yes Hx Diphtheria, Pertussis, Tetanus Vaccination: Yes Vertical Provider Document - CONSTITUTIONAL Agree With Documented VS: Yes Exam Limitations: No Limitations General Appearance: WD/WN, No Apparent Distress - INFECTION CONTROL TRAVEL OUTSIDE OF THE [place] IN LAST 30 DAYS: No - HEENT HEENT: Atraumatic, Normal ENT Exam, Normocephalic, PERRLA. negative: Conjuctival Injection, Pharyngeal Erythema, Tympanic Membrane Red, Tympanic Membrane Bulging - NECK Neck: Normal Inspection, Supple. negative: Lymphadenopathy-Left, Lymphadenopathy-Right - RESPIRATORY Respiratory: Breath Sounds Normal, No Respiratory Distress - CARDIOVASCULAR Cardiovascular: Regular Rate, Regular Rhythm - GI/ABDOMEN Gastrointestinal: Abdomen Soft, Abdomen Non-Tender - BACK Back: Normal Inspection. negative: CVA Tenderness-Right, CVA Tenderness-Left - MUSCULOSKELETAL/EXTREMETIES Musculoskeletal/Extremeties: DANIEL ROMERO - NEURO Level of Consciousness: Awake, Alert, Appropriate Motor/Sensory: No Motor Deficit - DERM Integumentary: Warm, Dry, No Rash. negative: Rash Course - Re-evaluation Re-evalutation: 08/01/19 12:07 Patient presents with cough headache skin hurting for the past 4 days. Denies fever vomiting diarrhea. Did not receive flu vaccine. 08/01/19 12:51 Chest X-Ray 08/01/19 12:04 IMPRESSION: NO ACUTE RADIOGRAPHIC FINDING IN THE CHEST. Laboratory 08/01/19 12:11 Influenza A (Rapid) NEGATIVE Influenza B (Rapid) NEGATIVE Patient looks good nontoxic looking. Respiratory rate even unlabored negative chest x-ray negative flu test. Patient was instructed take Tylenol Motrin as indicated monitor her symptoms return for difficulty breathing or any concerns. She verbalized understanding. - Vital Signs Vital signs: Temp Pulse Resp BP Pulse Ox 98 F 88 18 115/71 98 08/01/19 11:19 08/01/19 11:19 08/01/19 11:19 08/01/19 11:19 08/01/19 11:19 - Diagnostic Test Radiology reviewed: Reports reviewed Discharge - Discharge Clinical Impression: Cough Condition: Stable Disposition: HOME, SELF-CARE Instructions: Acetaminophen Additional Instructions: *You have been evaluated for cough, skin hurting *Your flu test was negative. Your chest x-ray was negative for pneumonia *Increase fluid intake *Monitor your temperature, take Tylenol as indicated *Follow up with a primary care provider within 1 week for recheck *Return to ED for worsening condition, changes, needs, difficulty breathing concerns Forms: Return to Work Referrals: DRE ROBLERO MD [Primary Care Provider] - Follow up in 1 week
--- NOTE | 2019-08-01 12:33 | RADIOLOGY REPORT (SQ) ---
EXAM DESCRIPTION: CHEST 2 VIEWS COMPLETED DATE/TIME: 08/01/2019 12:19 pm REASON FOR STUDY: cough COMPARISON: None. EXAM PARAMETERS: NUMBER OF VIEWS: two views TECHNIQUE: Digital Frontal and Lateral radiographic views of the chest acquired. RADIATION DOSE: NA LIMITATIONS: none FINDINGS: LUNGS AND PLEURA: No opacities, masses or pneumothorax. No pleural effusion. MEDIASTINUM AND HILAR STRUCTURES: No masses or contour abnormalities. HEART AND VASCULAR STRUCTURES: Heart normal size. No evidence for failure. BONES: No acute findings. HARDWARE: None in the chest. OTHER: No other significant finding. IMPRESSION: NO ACUTE RADIOGRAPHIC FINDING IN THE CHEST. TECHNICAL DOCUMENTATION: JOB ID: [id number] [employer]- All Rights Reserved Reading location - IP/workstation name: [email or web address]
[2019-08-01 12:51] LABS: A TYPE INFLUENZA AG NEGATIVE (NEGATIVE); B INFLUENZA AG NEGATIVE (NEGATIVE)
== END 2019-08-01 13:19 | disposition home or self-care (01) ==
LOC: ER 11:06
DX: R05 Cough (principal); R51 Headache; M79.10 Myalgia, unspecified site
CPT/HCPCS: 71046; 87804; 99283